=== PATIENT | male | born 1950 | race Caucasian/White ===

== ENCOUNTER 2016-12-26 04:22 | Emergency (ER) | payer MEDICARE, OTHER ==
[~2016-12-26] VITALS: Ht 177.8 cm; Wt 81.5 kg
[2016-12-26 04:31] VITALS: Ht 177.8 cm; Wt 81.5 kg
[2016-12-26 05:54] LABS: BASOPHILS % 0.2 % (0.0-2.0); EOSINOPHILS # 0.1 10^3/ul (0.0-0.5); EOSINOPHILS % 0.4 % (0.0-7.0); HEMATOCRIT 37.9 % (42.0-52.0); HEMOGLOBIN 12.2 g/dl (14.0-18.0); LYMPHOCYTES # 1.9 10^3/ul (0.8-2.9); LYMPHOCYTES % 13.6 % (15.0-51.0); MEAN CORPUSCULAR HGB CONC 32.2 g/dl (32.0-37.0); MEAN CORPUSCULAR VOLUME 93.3 fl (82.0-101.0); MEAN PLATELET VOLUME 9.4 fl (7.4-10.4); MONOCYTES % 7.5 % (0.0-11.0); NEUTROPHIL # 10.7 10^3/ul (1.6-7.5); PLATELET COUNT 249 10^3/UL (140-415); RED BLOOD COUNT 4.06 10^6/ul (4.70-6.10); RED CELL DISTRIBUTION WIDTH 14.1 % (11.5-14.5); WHITE BLOOD COUNT 13.7 10^3/ul (4.8-10.8)
[2016-12-26] MEDS ORDERED: LEVALBUTEROL (NEB) 1.25 MG/0.5 ML AMP HHN ONE (06:00)
[2016-12-26] MEDS ORDERED: IPRATROPIUM (NEB) 0.5 MG/2.5 ML AMP HHN ONE (06:00)
--- NOTE | 2016-12-26 06:15 | RADRPT ---
PROCEDURE: XR Chest. CLINICAL INDICATION: Shortness of breath TECHNIQUE: Portable single view of the chest COMPARISON: None. FINDINGS: Shallow lung inflation accentuates the heart size which is likely within normal limits. There is pat rnean opacity in the right mid to lower lung zone. There could be a small underlying effusion. No left effusion is seen. Top normal pulmonary vascularity. Left lung apex opacity is seen in part be due t o overlap of the left first rib end. Left apical pleural thickening. IMPRESSION: Probable infectious infiltrate of the right lung base. Left upper lobe opacity and pleural thickenin g may be due to chronic scarring or prior infection. Comparison with old studies is suggested. If no ne are available, follow-up PA and lateral views after treatment would be suggested. RPTAT: [facility] Physician Bang Date Time Electronically viewed and signed by Jami Thacker Physician on 12/26/2016 06:15 OSCAR/
[2016-12-26 06:20] VITALS: TEMP 98.2
[2016-12-26] MEDS ORDERED: METO-429 PO (06:38)
[2016-12-26] MEDS ORDERED: UDTYLC PO (06:38)
[2016-12-26] MEDS ORDERED: ACET-141 PO (06:38)
[2016-12-26 06:44] LABS: ALBUMIN 3.4 g/dl (3.3-4.9); ALBUMIN/GLOBULIN RATIO 0.94; BILIRUBIN,INDIRECT 0.9 mg/dl (0-1.1); BILIRUBIN,TOTAL 0.9 mg/dl (0.2-1.3); CREATININE 0.66 mg/dl (0.61-1.24); POTASSIUM 4.1 mmol/L (3.5-5.1)
[2016-12-26] MEDS ORDERED: HYDROmorphONE 1 MG/ML SYG IV STA (06:49)
[2016-12-26] MEDS ORDERED: ONDANSETRON 4 MG INJ IV STA (06:49)
[2016-12-26 06:51] LABS: TROPONIN-I 0.065 ng/ml (0.00-0.12)
[2016-12-26 06:52] LABS: INR 1.17; PT RATIO 1.2
[2016-12-26 06:53] LABS: PARTIAL THROMBOPLASTIN TIME 28.7 Sec (25.0-35.0)
[2016-12-26] MEDS ORDERED: SOD CHLORIDE 0.9% 1,000 ML IV ONE (07:00)
[2016-12-26] MEDS ORDERED: LEVOFLOXACIN 500 MG TAB PO ONE (07:00)
--- NOTE | 2016-12-26 07:22 | ERD ---
ER Documentation Chief Complaint Chief Complaint hemoptysis, cough out blood in large amounts 2 hours ago HPI 66-year-old man presents with continued hemoptysis, he underwent bronchoscopy and pulmonary biopsy a few days ago as an inpatient in [place]. He states after the procedure he did develop intermittent hemoptysis and presents this morning with continued hemoptysis. He has a long history of chronic cough of unknown etiology and chronic pulmonary scarring and possible mass bilaterally. Patient denies shortness of breath, no fevers or chills, no vomiting or diarrhea. Patient has inspiratory pain although this is similar to previous episodes, he states that analgesics he has been using at home arm providing enough relief. ROS All systems reviewed and are negative except as per history of present illness. Medications Home Meds Active Scripts Levofloxacin* (Levofloxacin*) 500 Mg Tablet, 500 MG PO DAILY for 6 Days, TAB Prov:DAMIAN COHEN MD 12/26/16 Oxycodone HCl/Acetaminophen (Percocet 5-325 mg Tablet) 1 Each Tablet, 1 EACH PO TID for PAIN, #12 TAB Prov:DAMIAN COHEN MD 12/26/16 Reported Medications Acetaminophen* (Acetaminophen*) 500 MG Extra Strength Tablet, 500 MG PO Q4H Y for PAIN AND OR ELEVATED TEMP, TAB 12/26/16 Acetaminophen-Codeine* (Tylenol-Codeine* Liq) [id number] Elix, 5 ML PO Q4H for PAIN, ML 12/26/16 Metoprolol Tartrate* (Lopressor*) 50 Mg Tab, 50 MG PO DAILY, #60 TAB 12/26/16 Allergies Allergies: Coded Allergies: No Known Allergy (Unverified , 12/26/16) PMhx/Soc Chronic cough, hypertension, pulmonary masses History of Surgery: Yes (recent bronchoscopy ) Anesthesia Reaction: No Hx Neurological Disorder: No Hx Respiratory Disorders: Yes Hx Cardiac Disorders: No Hx Psychiatric Problems: No Hx Miscellaneous Medical Probl: No Hx Alcohol Use: No Hx Substance Use: No Hx Tobacco Use: No Smoking Status: Never smoker FmHx Family History: No diabetes Physical Exam Vitals Vital Signs Date Time Temp Pulse Resp B/P Pulse Ox O2 Delivery O2 Flow Rate FiO2 12/26/16 08:54 78 20 108/72 99 Room Air 12/26/16 06:20 98.2 90 18 124/77 96 Nasal Cannula 3.0 12/26/16 05:50 91 30 99 Nasal Cannula 4.0 12/26/16 05:41 Nasal Cannula 4 12/26/16 04:31 98.3 87 20 174/92 89 Physical Exam GENERAL: Well-developed, well-nourished, well-hydrated, in no apparent distress , looks nontoxic in appearance HEENT: Moist mucous membranes, pink conjunctiva, no cervical spine tenderness or step-off deformities, no goiter, no jaundice or icterus, extraocular movements intact without pain. No submandibular induration, and no pharyngeal erythema NEURO: Alert and oriented 3, cranial nerves II through XII intact bilaterally, pupils equal round reactive to light, no focal deficits or facial asymmetry, sensation intact distally Strength 5/5 in upper and lower extremities bilaterally CARDIAC: Regular rate and rhythm, no murmurs rubs or gallops LUNGS: Initially poor breath sounds, no crackles wheezing or stridor ABDOMEN: Soft nontender, no guarding, no rigidity, no rebound, no psoas sign no obturator sign. Normoactive bowel sounds SKIN: Warm and dry to touch, no abrasions, contusions, or hematomas, no lacerations, no ecchymosis, no target lesions, and without ulcers EXTREMITIES: No clubbing cyanosis or edema, calves are bilaterally symmetrical, no Homans sign, no popliteal cord sign. Distal pulses equal and bilateral PSYCH: Normal affect without agitation or irritability Result Diagram: 12/26/1652112/26/16521 Results 24 hrs Laboratory Tests Test 12/26/16 05:22 White Blood Count 13.710^3/ul Red Blood Count 4.0610^6/ul Hemoglobin 12.2g/dl Hematocrit 37.9% Mean Corpuscular Volume 93.3fl Mean Corpuscular Hemoglobin 30.0pg Mean Corpuscular Hemoglobin Concent 32.2g/dl Red Cell Distribution Width 14.1% Platelet Count 56377^3/UL Mean Platelet Volume 9.4fl Neutrophils % 78.0% Lymphocytes % 13.6% Monocytes % 7.5% Eosinophils % 0.4% Basophils % 0.2% Nucleated Red Blood Cells % 0.0/100WBC Neutrophils # 10.710^3/ul Lymphocytes # 1.910^3/ul Monocytes # 1.010^3/ul Eosinophils # 0.110^3/ul Basophils # 0.010^3/ul Nucleated Red Blood Cells # 0.010^3/ul Prothrombin Time 15.0Sec Prothrombin Time Ratio 1.2 INR International Normalized Ratio 1.17 Activated Partial Thromboplast Time 28.7Sec Sodium Level 137mmol/L Potassium Level 4.1mmol/L Chloride Level 102mmol/L Carbon Dioxide Level 28mmol/L Anion Gap 11 Blood Urea Nitrogen 9mg/dl Creatinine 0.66mg/dl Glucose Level 127mg/dl Calcium Level 9.0mg/dl Total Bilirubin 0.9mg/dl Direct Bilirubin 0.00mg/dl Indirect Bilirubin 0.9mg/dl Aspartate Amino Transf (AST/SGOT) 20IU/L Alanine Aminotransferase (ALT/SGPT) 23IU/L Alkaline Phosphatase 107IU/L Troponin I 0.065ng/ml Total Protein 7.0g/dl Albumin 3.4g/dl Globulin 3.60g/dl Albumin/Globulin Ratio 0.94 Current Medications Medications (Trade) Dose Ordered Sig/Yara Route PRN Reason Start Time Stop Time Status Last Admin Dose Admin Levalbuterol (Xopenex Neb) 1.25 mg ONCE ONCE N 12/26/16 06:00 12/26/16 06:01 DC 12/26/16 05:45 Ipratropium [place] (Atrovent 0.02% (Neb)) 0.5 mg ONCE ONCE HHN 12/26/16 06:00 12/26/16 06:01 DC 12/26/16 05:46 Levofloxacin 500 mg 500 mg ONCE ONCE PO 12/26/16 07:00 12/26/16 07:01 DC 12/26/16 07:07 Sodium Chloride (NS) 1,000 ml @ 1,000 mls/hr Q1H ONCE IV 12/26/16 07:00 12/26/16 07:59 DC 12/26/16 07:07 Hydromorphone HCl (Dilaudid) 1 mg ONCE STAT IV 12/26/16 06:49 12/26/16 06:53 DC 12/26/16 07:07 Ondansetron HCl (Zofran Inj) 4 mg ONCE STAT IV 12/26/16 06:49 12/26/16 06:53 DC 12/26/16 07:07 Procedures/MDM IV line was established patient was placed on lunchroom monitor rhythm strip revealed a sinus rhythm at about 90 bpm with upright P and T waves. Patient was afebrile. EKG performed, read by me: 93 bpm, normal sinus rhythm, normal axis, no acute ST segment changes, narrow QRS complex, with good R-wave progression in precordial leads. One view chest x-ray performed, read by me there is a large infiltrate to the right lung base and left upper lobe mass. I suspect these are chronic as patient does have a history of chronic bilateral lung problems and recent bronchoscopy for lung mass. Is also had recent biopsy. I administered 1 L normal saline intravenously, albuterol 5 mg via nebulizer, hydromorphone 1 mg IV, and Zofran 4 mg IV with good effect. Patient's symptoms completely resolved. Given his recent procedure and continued hemoptysis I also administered levofloxacin 500 mg p.o. 1. CBC reveals a mild leukocytosis, electrolytes unremarkable, liver function tests normal, troponin was negative, coagulation profile unremarkable. Patient's who is at the bedside states his hemoptysis has improved while here, he is coughed a number of times while in the ED and there is no heavy or unrelenting blood with coughing episodes his symptoms have improved and he states he feels much better. Patient remains afebrile and oxygen saturation is within normal limits. Differential diagnoses considered, included but not limited to acute coronary syndrome, pulmonary embolism, aortic dissection, abdominal aortic aneurysm, sepsis, stroke, meningitis, encephalitis, pneumonia, appendicitis, cholecystitis , bowel obstruction, pyelonephritis, nephrolithiasis, cystitis, as well as metabolic, hematologic, and electrolyte abnormalities. As well as abscess, cellulitis, fractures, and dislocations. Patient feels much better at this time, and vital signs are normal, symptoms have improved. 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 Patient understood instructions and agreed to plan. Disclaimer: Inadvertent spelling and grammatical errors are likely due to EHR/ dictation software use and do not reflect on the overall quality of patient care. Also, please note that the electronic time recorded on this note does not necessarily reflect the actual time of the patient encounter. Departure Diagnosis: Primary Impression: Hemoptysis Additional Impression: Post-op bleeding Surgical complication system/body Area: respiratory system Procedure type: respiratory system Qualified Code: J95.830 - Postoperative hemorrhage involving respiratory system following respiratory system procedure Condition: Good DAMIAN COHEN MD Dec 26, 2016 07:22
[2016-12-26] MEDS ORDERED: OXYC-279 PO (08:10)
[2016-12-26] MEDS ORDERED: LEVO500T10 PO (08:10)
[2016-12-26 08:54] VITALS: BP 108/72; PULSE 78; RESP 20
== END 2016-12-26 08:55 | disposition home or self-care (01) ==
LOC: E/R 04:22
DX: R04.2 Hemoptysis (principal); I10 Essential (primary) hypertension; J95.830 Postprocedural hemorrhage of a respiratory system organ or structure following a respiratory system procedure
CPT/HCPCS: 36415; 71010; 80053; 84484; 85025; 85610; 85730; 86850; 86900; 86901; 93005; 94664; 96374; 96375; 99285; J1170; J2405; J7030